=== PATIENT | female | born 1995 | race Caucasian/White ===

== ENCOUNTER 2023-10-25 00:10 | Emergency (ER) | payer BC ==
[~2023-10-25] VITALS: Ht 167.6 cm; Wt 82.6 kg
[2023-10-25 00:18] VITALS: BP 128/80; PULSE 78; RESP 20; TEMP 98.1; O2SAT 98
[2023-10-25 00:37] VITALS: BP 126/80; PULSE 76; RESP 21; TEMP 98; O2SAT 98
[2023-10-25] MEDS ORDERED: ALBU0.0912 INH (02:02)
[2023-10-25] MEDS ORDERED: ALUMINUM HYD/MAG/SIMETHICONE 30 ML UDC ONE (02:16)
[2023-10-25] MEDS ORDERED: DICYCLOMINE HCL LIQUID 10 MG/5 ML UDC ONE ×2 (02:16→02:17)
[2023-10-25] MEDS: DICYCLOMINE HCL LIQUID 20 MG, ALUMINUM HYD/MAG/SIMETHICONE 30 ML, LIDOCAINE VISCOUS 2% ... PO ONE (02:19)
== END 2023-10-25 02:20 | disposition home or self-care (01) ==
LOC: MED 00:10
DX: R07.89 Other chest pain (principal); T59.811A Toxic effect of smoke, accidental (unintentional), initial encounter; R07.0 Pain in throat; Z79.899 Other long term (current) drug therapy; Y92.89 Other specified places as the place of occurrence of the external cause
CPT/HCPCS: 71045; 93005; 99283; J7030